=== PATIENT | female | born 1990 | race Caucasian/White ===

== ENCOUNTER → 2018-05-17 | Outpatient (CLI) | payer OTHER | END | disposition home or self-care (01) | LOC: LAB 15:38 → LAB SHORT 15:38 | PROVIDERS: Obstetrics & Gynecology | DX: Z01.419 Encounter for gynecological examination (general) (routine) without abnormal findings (principal) | CPT/HCPCS: G0123 ==

== ENCOUNTER → 2019-01-09 | Outpatient (CLI) | payer OTHER ==
[2019-01-10 06:44] LABS: Candida species (DNA Probe) Negative (NEGATIVE); G. vaginalis (DNA Probe) Negative (NEGATIVE); T. vaginalis (DNA Probe) Negative (NEGATIVE)
[2019-01-11 23:06] LABS: CHLAMYDIA TRACHOMATIS, NAA Negative (Negative); NEISSERIA GONORRHOEAE, NAA Negative (Negative)
== END | disposition home or self-care (01) ==
LOC: LAB 15:57 → LAB SHORT 15:57
PROVIDERS: Obstetrics & Gynecology
DX: Z11.3 Encounter for screening for infections with a predominantly sexual mode of transmission (principal); N76.0 Acute vaginitis
CPT/HCPCS: 87480; 87491; 87510; 87591; 87660

== ENCOUNTER 2019-04-09 13:39 | Day surgery (SDC) | payer OTHER ==
[~2019-04-09] VITALS: Ht 167.6 cm; Wt 86.1 kg
[~2019-04-09 13:39] MED LIST: BIOTIN1 MG PO; Flovent 44 mc10.6 GM INH; Monodox100 MG PO; OMEPRAZOLE20 MG PO; ONDA4 PO; PROAIR RESPICL90 MCG IH; Singulair10 MG PO
== END 2019-04-09 15:29 | disposition home or self-care (01) ==
LOC: ORSCSDS 13:39
PROVIDERS: Student in an Organized Health Care Education/Training Program
PROC: 0DB68ZX Excision of Stomach, Via Natural or Artificial Opening Endoscopic, Diagnostic (ICD-10-PCS; principal; 2019-04-09 14:45)
PROC: 0DB88ZX Excision of Small Intestine, Via Natural or Artificial Opening Endoscopic, Diagnostic (ICD-10-PCS; principal; 2019-04-09 14:45)
PROC: 0DB58ZX Excision of Esophagus, Via Natural or Artificial Opening Endoscopic, Diagnostic (ICD-10-PCS; principal; 2019-04-09 14:45)
DX: K21.9 Gastro-esophageal reflux disease without esophagitis (principal); R11.2 Nausea with vomiting, unspecified; R10.13 Epigastric pain; Z79.899 Other long term (current) drug therapy
CPT/HCPCS: 88305; 88342; J2250; J2704; J7120

== ENCOUNTER → 2021-05-19 | Outpatient (CLI) | payer OTHER ==
[2021-05-21 15:09] LABS: HPV 16 Negative (Negative); HPV 18 Negative (Negative); HPV OTHER HR TYPES Negative (Negative)
== END | disposition home or self-care (01) ==
LOC: LAB SHORT 11:15 → LAB 11:15
PROVIDERS: Obstetrics & Gynecology
DX: Z01.419 Encounter for gynecological examination (general) (routine) without abnormal findings (principal)
CPT/HCPCS: 87624; G0123

== ENCOUNTER → 2024-01-26 | Outpatient (CLI) | payer OTHER ==
[~2024-01-26] MED LIST changes: +Buspirone HCl15 MG PO; +IBUP400
[2024-02-06 17:09] LABS: HPV HIGH RISK BY TMA Not Detected; HPV SOURCE Cervical
== END | disposition home or self-care (01) ==
LOC: LAB SHORT 11:51 → LAB 11:51
PROVIDERS: Obstetrics & Gynecology
DX: Z01.419 Encounter for gynecological examination (general) (routine) without abnormal findings (principal)
CPT/HCPCS: 87624; G0123

== ENCOUNTER 2025-02-07 09:20 | Day surgery (SDC) | payer OTHER ==
[~2025-02-07] VITALS: Ht 167.6 cm; Wt 86.7 kg
[2025-02-07] MEDS ORDERED: FentaNYL Citrate 50 MCG/ML 2 ML Injection ONE ×3 (09:34→10:45)
[2025-02-07] MEDS ORDERED: Ketorolac Tromethamine 30mg Vial ONE (09:35)
[2025-02-07] MEDS ORDERED: Ondansetron HCl 2 MG / ML 2ML Vial ONE ×2 (09:35→10:45)
[2025-02-07] MEDS ORDERED: Dexamethasone Sod Phos 10 MG/ML 1ML VIAL ONE (09:35)
[2025-02-07] MEDS ORDERED: PRENATAL TABLE1 EAC2 PO (09:44)
[2025-02-07] MEDS ORDERED: ONDA4ODT (09:44)
[2025-02-07] MEDS ORDERED: DOCU100 PO (09:44)
[2025-02-07] MEDS ORDERED: ZYRTEC10 M2 PO (09:44)
[2025-02-07] MEDS ORDERED: Midazolam HCl 1MG / ML 2ML Vial ONE (09:56)
[2025-02-07] MEDS ORDERED: CeFAZolin Sodium 1000 mg Vial ONE (10:07)
--- NOTE | 2025-02-07 10:39 | NUR ---
02/07/25 1039 Shari Kapoor LMA PULLED BY AT 1034. PT. TO RA WITH SATS 99%.
[2025-02-07 11:07] VITALS: BP 119/83
--- NOTE | 2025-02-07 11:17 | NUR ---
02/07/25 1117 CESILIA ZAVALA PAIN LEVEL IS 4/10. DENIES NAUSEA. WARM BLANKETS PROVIDED
== END 2025-02-07 11:50 | disposition home or self-care (01) ==
LOC: ORSCSDS 09:20
PROVIDERS: Obstetrics & Gynecology
PROC: 10D18ZZ Extraction of Products of Conception, Retained, Via Natural or Artificial Opening Endoscopic (ICD-10-PCS; principal; 2025-02-07 10:30)
DX: O02.1 Missed abortion (principal); J45.909 Unspecified asthma, uncomplicated; K21.9 Gastro-esophageal reflux disease without esophagitis; E66.9 Obesity, unspecified; Z68.30 Body mass index [BMI] 30.0-30.9, adult; Z79.899 Other long term (current) drug therapy
CPT/HCPCS: 88305; 88342; 88374; J0690; J1100; J1885; J2250; J2405; J2704; J3010; J7120